=== PATIENT | male | born 1970 | race Caucasian/White ===

== ENCOUNTER 2020-06-06 10:24 | Inpatient (IN) | payer MEDICARE, MEDICAID ==
[~2020-06-06] VITALS: Ht 172.7 cm; Wt 81.1 kg
[2020-06-06] VITALS (9 sets, daily range): BP systolic 98–157; BP diastolic 63–105; Ht 172.7 cm; Wt 81.1 kg
--- NOTE | 2020-06-06 10:24 | NUR ---
PATIENT TAKEN STRAIGHT TO CT ON ARRIVAL AT 1020
--- NOTE | 2020-06-06 10:24 | NUR ---
PATIENT FSBS ON ARRIVAL 77
--- NOTE | 2020-06-06 10:36 | NUR ---
[facility] CONTACTED PER VERBAL ORDER OF DR SILVESTRE
--- NOTE | 2020-06-06 10:47 | NUR ---
[facility]
--- NOTE | 2020-06-06 10:50 | NUR ---
[facility] CONSULT INITIATED.
--- NOTE | 2020-06-06 10:52 | NUR ---
PATIENT STATES THAT PREVIOUS STROKE WAS DX CHRONIC HEMORRHAGIC STROKE
--- NOTE | 2020-06-06 10:53 | NUR ---
PATIENT STATES HE FEELS SOME IMPROVEMENT WITH DEXTROSE IVP.
--- NOTE | 2020-06-06 10:57 | NUR ---
[facility] CONSULT. NIHSS 10 PER NEUROLOGIST. RULED OUT DUE TO HX OF HEMORRHAGIC STROKE AND SEVERITY OF SYMPTOMS.
--- NOTE | 2020-06-06 11:04 | NUR ---
PATIENT TAKEN TO CT
[2020-06-06] MEDS ORDERED: FLUPHENAZINE HCL1 MG (11:07)
[2020-06-06] MEDS ORDERED: CELEXA10 MG (11:10)
[2020-06-06] MEDS ORDERED: LIPITOR20 MG (11:10)
[2020-06-06] MEDS ORDERED: LATUDA40 MG (11:10)
[2020-06-06] MEDS ORDERED: LISINOPRIL2.5 MG (11:10)
[2020-06-06 11:13] LABS: BASOPHILS 0.6 % (0-2); EOSINOPHILS 2.5 % (0-7); HEMATOCRIT 42.5 % (42.0-54.0); HEMOGLOBIN 14.1 g/dL (13.5-17.5); IMMATURE GRANULOCYTES 0.1 % (0-5); LYMPHOCYTE ABS# 2.46 10x3/uL (1.32-3.57); LYMPHOCYTES 26.6 % (15-50); MCH 29.7 pg (26.0-34.0); MCHC 33.2 g/dL (31.0-37.0); MCV 89.7 fL (80.0-100.0); MEAN PLATELET VOLUME 10.9 fL (7.4-10.4); MONOCYTES 9.1 % (2-11); NEUTROPHIL ABS# 5.66 10x3/uL (1.78-5.38); NEUTROPHILS 61.1 % (40-80); PLATELET COUNT 356 10x3/uL (130-400); RBC 4.74 10x6/uL (4.20-6.10); RDW 14.4 % (11.5-14.5); WBC 9.3 10x3/uL (4.8-10.8)
[2020-06-06 11:20] LABS: APTT 30.8 SECONDS (22.8-39.4); INR 1.11 (0.85-1.17); PROTIME 13.2 SECONDS (11.6-15.0)
[2020-06-06 11:23] LABS: CALC OSMOLALITY 271 mosm/kg (275-300); CALCIUM 9.5 mg/dL (8.5-10.1); CARBON DIOXIDE 29.1 mmol/L (21.0-32.0); CHLORIDE - SERUM 102 mmol/L (98-107); CREATININE - SERUM 1.3 mg/dL (0.6-1.3); SODIUM 137 mmol/L (136-145); UREA NITROGEN 13 mg/dL (7-18); eGFR NON AFRICAN AMERICAN 62 mL/min (90-120)
[2020-06-06 11:28] LABS: GLUCOSE 56 mg/dL (74-106)
--- NOTE | 2020-06-06 11:28 | NUR ---
CRITICAL LAB TAKEN, GLUCOSE 56 BUN 13 CREATININE 1.3. WILL NOTIFY MD AND CT. BLOOD SAMPLE WAS TAKEN BY EMS PRIOR TO ARRIVAL. GLUCOSE WAS TREATED PRIOR TO LAB RESULTS.
--- NOTE | 2020-06-06 11:34 | NUR ---
[facility] GIVEN STATUS UPDATE AND LAB INFORMATION
[2020-06-06 11:40] LABS: ALBUMIN 3.7 g/dL (3.4-5.0); ALKALINE PHOSPHATASE 76 U/L (30-120); ALT (SGPT) 20 U/L (10-68); BILIRUBIN - TOTAL 0.19 mg/dL (0.2-1.3); CKMB 1.5 U/L (0.0-3.6); CREATINE KINASE 76 UL (21-232); MAGNESIUM - SERUM 2.3 mg/dL (1.8-2.4); PROTEIN - SERUM 7.2 g/dL (6.4-8.2); THYROID STIMULATING HORMONE 3.57 uIU/mL (0.36-3.74); TROPONIN-I < 0.017 ng/mL (0.000-0.060)
--- NOTE | 2020-06-06 11:42 | NUR ---
PATIENT STILL IN CT FOR CTA HEAD AND NECK. MRI NOTIFIED OF PATIENT STATUS.
--- NOTE | 2020-06-06 13:44 | NUR ---
REPORT CALLED TO MELISSA ADDISON ON MED SURG
[2020-06-06] MEDS ORDERED: LATUDA40 MG PO (14:57)
[2020-06-06] MEDS ORDERED: CELEXA40 MG PO (14:57)
[2020-06-06] MEDS ORDERED: LIPITOR20 MG PO (14:58)
[2020-06-06] MEDS ORDERED: LISINOPRIL10 MG PO (14:58)
[2020-06-06] MEDS ORDERED: FLUPHENAZINE H2.5 MG PO (14:59)
[2020-06-06] MEDS ORDERED: BAYER CHEWABLE81 MG PO (15:00)
--- NOTE | 2020-06-06 15:50 | NUR ---
[phone] [facility] NUMBER REQUESTED AND RECIEVED BY JERONIMO
--- NOTE | 2020-06-06 15:51 | NUR ---
PT STATES THAT HE HAS TRIED TO TAKE 10 OF HIS 10 MG LISINOPRIL TABLETS TO SEE WHAT KIND OF SIDE EFFECT IT WOULD HAVE ON HIM. WAS CURIOUS TO KNOW WHETHER OR NOT ANY ONE WOULD REALIZE HE NEEDED "SAVING." NOTIFIED HOUSE SUP. CL IN REACH. WCTM
--- NOTE | 2020-06-06 16:30 | NUR ---
PATIENT DENIES SUICIDAL THOUGHTS OR PLANS AT THIS TIME. STATES, "I JUST TAKE IT DAY BY DAY. TODAY, I AM NOT HAVING ANY THOUGHTS OF SUICIDE. BUT TOMORROW IS A NEW DAY." STATES THAT HE HAS A LONG HISTORY OF MENTAL HEALTH HOSPITALIZATIONS. PATIENT STATES THAT HE IS COMPLIANT WITH HIS PRESCRIBED MEDICATIONS. STATES THAT HIS MOST RECENT PSYCHIATRIC HOSPITALIZATION WAS IN APRIL 2021 AND THAT HE HAS TAKEN HIS PRESCRIBED MEDS EVER SINCE DISCHARGE. FLOOR NURSE ADVISED TO SEEK A PSYCHIATRIC CONSULT WITH PSYCHIATRIST OR HIS DANCE CHOREOGRAPHER.
--- NOTE | 2020-06-06 20:14 | NUR ---
PATIENT RESTING IN BED WITH NO S/S OF DISTRESS. PATIENT DENIES NEEDS AT THIS TIME. BED IN LOWEST POSITION AND CALL LIGHT IN REACH. ENCOURAGED PATIENT TO CALL WITH NEEDS.
--- NOTE | 2020-06-06 21:06 | NUR ---
ADMINISTERED MEDS PER ORDERS. PATIENT JACQUELINE WELL. ENCOURAGED TO CALL WITH NEEDS.
[2020-06-07 07:18] LABS: BASOPHILS 0.7 % (0-2); EOSINOPHILS 3.1 % (0-7); HEMATOCRIT 38.2 % (42.0-54.0); HEMOGLOBIN 12.4 g/dL (13.5-17.5); IMMATURE GRANULOCYTES 0.3 % (0-5); LYMPHOCYTE ABS# 2.82 10x3/uL (1.32-3.57); LYMPHOCYTES 37.7 % (15-50); MCH 29.4 pg (26.0-34.0); MCHC 32.5 g/dL (31.0-37.0); MCV 90.5 fL (80.0-100.0); MONOCYTES 8.8 % (2-11); NEUTROPHILS 49.4 % (40-80); PLATELET COUNT 306 10x3/uL (130-400); RBC 4.22 10x6/uL (4.20-6.10); RDW 14.4 % (11.5-14.5); WBC 7.5 10x3/uL (4.8-10.8)
[2020-06-07 07:19] LABS: ALBUMIN 2.9 g/dL (3.4-5.0); ANION GAP 13.3 mmol/L (8-16); BILIRUBIN - TOTAL 0.1 mg/dL (0.2-1.3); CALCIUM 8.3 mg/dL (8.5-10.1); CARBON DIOXIDE 23.2 mmol/L (21.0-32.0); CREATININE - SERUM 1.2 mg/dL (0.6-1.3); POTASSIUM - SERUM 4.5 mmol/L (3.5-5.1); PROTEIN - SERUM 5.9 g/dL (6.4-8.2)
[2020-06-07 09:27] VITALS: BP 137/83
--- NOTE | 2020-06-07 11:44 | NUR ---
RESTING IN BED, NO DISTRESS NOTED, SEEN THIS AM BY PT, IV INFUSING, CONT TO MONITOR
[2020-06-07] MEDS ORDERED: NICODERM CQ1 EAC2 TRANSDERM (13:32)
[2020-06-07] MEDS ORDERED: PLAVIX75 MG PO (13:32)
[2020-06-07] MEDS ORDERED: VISTARIL50 MG PO (13:33)
[2020-06-07] MEDS ORDERED: KLONOPIN0.5 MG PO (13:33)
--- NOTE | 2020-06-07 14:51 | NUR ---
AWAITING DC HOME, REMOVED SL, TIP INTACT
[2020-06-07 15:22] VITALS: BP 140/79
--- NOTE | 2020-06-07 15:28 | MORECARE ---
CASE MANAGEMENT DISCHARGE SUMMARY PATIENT: COMFORT SHAH UNIT: [id number] ADM DATE: 06/06/20 AGE: 50 : 68 SEX: M ROOM/BED: D.2222 AUTHOR: ADINA,DOC PHYSICIAN: REFERRING PHYSICIAN: SIMÓN HERNANDEZ MD DATE OF SERVICE: 06/07/20 Discharge Plan Patient Name: COMFORT SHAH Facility: [facility]:[place] : 1970 Planned Disposition: Assisted Living Anticipated Discharge Date: 06/07/20 Discharge Date: Expected LOS: 1 Initial Reviewer: FEDERICO Initial Review Date: 06/06/2020 Generated: 06/07/20 4:27 pm Comments DCP- Discharge Planning Updated by DEMETRI Danielson on 06/07/20 2:[address] CM met with patient to complete DC plan and to evaluate needs. Patient lives at [facility]. At discharge, the patient plans to return to [facility] and feels this is a safe discharge. CM discussed availability of home health, rehab services, and medical equipment. Patient declined HHS, SNF, IPR, and DME. Patient voiced no other needs at this time and is satisfied with DC plan. Transportation provider at discharge will be with [facility] of [facility]. DC IMM delivered, explained, signed by the patient, and placed in chart. Signed form also left with the patient. CM will continue to follow and will assist as needed with dc plans/needs. DCPIA - Discharge Planning Initial Assessment Updated by FEDERICO: yDlan Danielson on 06/07/20 3:26 pm * Is the patient Alert and Oriented? Yes * PCP Dr. Shane * Pharmacy [facility] * Preadmission Environment Assisted Living * Facility Name [facility] * ADLs Independent * Equipment None * Other Equipment n/a * Verbal permission to speak to the caregivers and representatives has been obtained from the patient. Yes * Community resources currently utilized None * Please name any agencies selected above. n/a * Additional services required to return to the preadmission environment? No * Can the patient safely return to the preadmission environment? Yes * Has this patient been hospitalized within the prior 30 days at any hospital? No Coverage Notice Reviewer: FEDERICO - Dylan Danielson Notice Issued Date-Time: 06/07/2020 15:26 Notice Type: IM Discharge Notice Notice Delivered To: Patient Relationship to Patient: Self Speech Professor Name: Delivery Method: HAND - Hand Delivered Aliyah Days: Prior Verbal Notification: Recipient Understood Notice: Yes Recipient Signature: Yes Med Rec Note Co-signed by Attending: Coverage Notice Comment: DC IMM delivered, explained, signed by the patient, and placed in chart. Patient Name: COMFORT SHAH Page [phone] at 1528 All edits/amendments must be made on the electronic document DICTATION DATE: 06/07/20 1528 LAB[employer]ER [employer]: SHY 06/07/20 1528 RPT#: [id number] DC DATE: STATUS: ADM IN [facility] [address] [place] [address] END OF REPORT
--- NOTE | 2020-06-07 15:31 | NUR ---
WALKED FROM UNIT TO ER FOR TRANSPORT HOME
--- NOTE | 2020-06-08 07:54 | MORECARE ---
CASE MANAGEMENT DISCHARGE SUMMARY PATIENT: COMFORT SHAH UNIT: [id number] ADM DATE: 06/06/20 AGE: 50 : 68 SEX: M ROOM/BED: D.2222 AUTHOR: ADINA,DOC PHYSICIAN: REFERRING PHYSICIAN: SIMÓN HERNANDEZ MD DATE OF SERVICE: 06/08/20 Discharge Plan Patient Name: COMFORT SHAH Facility: [facility]:[place] : 1970 Planned Disposition: Assisted Living Anticipated Discharge Date: 06/07/20 Discharge Date: 06/07/2020 Expected LOS: 1 Initial Reviewer: FEDERICO Initial Review Date: 06/06/2020 Generated: 06/08/20 8:53 am Comments DCP- Discharge Planning Updated by FEDERICO: Dylan Danielson on 06/07/20 2:[address] CM met with patient to complete DC plan and to evaluate needs. Patient lives at [facility]. At discharge, the patient plans to return to [facility] and feels this is a safe discharge. CM discussed availability of home health, rehab services, and medical equipment. Patient declined HHS, SNF, IPR, and DME. Patient voiced no other needs at this time and is satisfied with DC plan. Transportation provider at discharge will be with [facility] of [facility]. DC IMM delivered, explained, signed by the patient, and placed in chart. Signed form also left with the patient. CM will continue to follow and will assist as needed with dc plans/needs. DCPIA - Discharge Planning Initial Assessment Updated by FEDERICO: Dylan Danielson on 06/07/20 3:26 pm * Is the patient Alert and Oriented? Yes * PCP Dr. Shane * Pharmacy [facility] * Preadmission Environment Assisted Living * Facility Name [facility] * ADLs Independent * Equipment None * Other Equipment n/a * Verbal permission to speak to the caregivers and representatives has been obtained from the patient. Yes * Community resources currently utilized None * Please name any agencies selected above. n/a * Additional services required to return to the preadmission environment? No * Can the patient safely return to the preadmission environment? Yes * Has this patient been hospitalized within the prior 30 days at any hospital? No Coverage Notice Reviewer: [id number] Carina GossDylanrazia Danielson Notice Issued Date-Time: 06/07/2020 15:26 Notice Type: IM Discharge Notice Notice Delivered To: Patient Relationship to Patient: Self Multi Share Program Coordinator Name: Delivery Method: HAND - Hand Delivered Aliyah Days: Prior Verbal Notification: Recipient Understood Notice: Yes Recipient Signature: Yes Med Rec Note Co-signed by Attending: Coverage Notice Comment: DC IMM delivered, explained, signed by the patient, and placed in chart. Last DP export: 06/07/20 2:28 pm Patient Name: COMFORT SHAH Page [phone] at 0754 All edits/amendments must be made on the electronic document DICTATION DATE: 06/08/20752 PROFESSOR OF INDUSTRIAL TECHNOLOGY: SHY 06/08/20 0753 RPT#: [id number] DC DATE:06/07/20 STATUS: DIS IN [facility] [address] [place] [address] END OF REPORT
== END 2020-06-07 15:32 | DRG 69 ==
LOC: D.ER 10:24 → D.MS 11:58 → D.EDHOLD 11:58 → D.MS 13:31
PROVIDERS: Family Medicine; ADMIT Family Medicine; ATTEND Family Medicine
DX: G45.9 Transient cerebral ischemic attack, unspecified (principal); G81.91 Hemiplegia, unspecified affecting right dominant side; I10 Essential (primary) hypertension; E78.5 Hyperlipidemia, unspecified; F32.9 Major depressive disorder, single episode, unspecified; F20.9 Schizophrenia, unspecified; F41.1 Generalized anxiety disorder; Z72.0 Tobacco use